=== PATIENT | female | born 1990 | race Caucasian/White ===

== ENCOUNTER 2019-05-23 07:11 | Inpatient (IN) | payer OTHER ==
[2019-05-23] MEDS ORDERED: Dexamethasone 4 MG/ML SDV ONE (07:16)
[2019-05-23] MEDS ORDERED: Neostigmine Methylsulfate 1 MG/ML 5 ML Syringe ONE (07:16)
[2019-05-23] MEDS ORDERED: Succinylcholine 200 MG/10 ML MDV ONE (07:16)
[2019-05-23] MEDS ORDERED: Rocuronium 50 MG/5 ML Vial ONE ×2 (07:16→11:09)
[2019-05-23] MEDS ORDERED: fentaNYL 250 MCG/5 ML SDV ONE ×3 (07:16→09:52)
[2019-05-23] MEDS ORDERED: Ondansetron 4 MG/2 ML SDV ONE (07:16)
[2019-05-23] MEDS ORDERED: Glycopyrrolate 0.2 MG/ML 5 ML MDV ONE (07:16)
[2019-05-23] MEDS ORDERED: Propofol 200 MG/20 ML SDV ONE (07:16)
[2019-05-23] MEDS ORDERED: Acetaminophen 500 MG Tab PO ONE (07:30)
[2019-05-23] MEDS ORDERED: Scopolamine 1.5 MG Transdermal Patch TOP SCH (07:30)
[2019-05-23] MEDS ORDERED: Gabapentin 300 MG Cap PO ONE (07:30)
[2019-05-23] MEDS ORDERED: Celecoxib 200 MG Cap PO ONE (07:30)
[2019-05-23] MEDS ORDERED: cefOXitin 2 GM in Sodium Chloride 0.9% 50 ML IV ONE (08:00)
[2019-05-23] MEDS ORDERED: Ketamine 500 MG/5 ML MDV IV SCH (08:30)
[2019-05-23] MEDS ORDERED: Magnesium Sulfate 3.8 GM in Sodium Chloride 0.9% 100 ML IV SCH (08:30)
[2019-05-23] MEDS ORDERED: Ketamine 50 MG in Sodium Chloride 0.9% 49.5 ML IV SCH (08:30)
[2019-05-23] MEDS ORDERED: Dextrose 5%-Lactated Ringers 1,000 ML IV SCH ×2 (09:06→16:00)
[2019-05-23 09:29] LABS: HEMOGLOBIN A1C 10.5 % (4.5-6.2)
[2019-05-23] MEDS: cefOXitin 2 GM Vial ONE ×2 (10:09→13:05)
[2019-05-23] MEDS ORDERED: Lactated Ringers 1,000 ML ONE ×2 (11:09→12:02)
[2019-05-23] MEDS ORDERED: Labetalol 20 MG/4 ML Syringe ONE (11:31)
[2019-05-23] MEDS ORDERED: hydrOXYzine HCL 100 MG/2 ML SDV IM PRN (15:55)
[2019-05-23] MEDS ORDERED: Calcium Gluconate 10% 1 GM/10 ML SDV IVPUSH PRN (15:55)
[2019-05-23] MEDS ORDERED: Ondansetron 4 MG/2 ML SDV IVPUSH PRN (15:55)
[2019-05-23] MEDS ORDERED: diphenhydrAMINE 50 MG/ML SDV IVPUSH PRN (15:55)
[2019-05-23] MEDS ORDERED: Cyclobenzaprine 10 MG Tab PO PRN (15:55)
[2019-05-23] MEDS ORDERED: Labetalol 20 MG/4 ML Syringe IVPUSH PRN (15:55)
[2019-05-23] MEDS ORDERED: HYDROmorphone 1 MG/ML Syringe IV PRN (15:55)
[2019-05-23] MEDS ORDERED: Metoclopramide 10 MG/2 ML SDV IVPUSH PRN (15:55)
[2019-05-23] MEDS ORDERED: Albuterol/Ipratropium 3.0-0.5 MG/3 ML Neb Soln INH PRN (15:55)
[2019-05-23] MEDS ORDERED: Acetaminophen 500 MG Tab PO PRN (15:55)
[2019-05-23] MEDS ORDERED: oxyCODONE 5 MG Tab PO PRN (15:55)
[2019-05-23] MEDS ORDERED: Pantoprazole 40 MG Vial IVPUSH SCH (16:00)
[2019-05-23] MEDS ORDERED: Lactated Ringers 1,000 ML IV SCH (16:00)
[2019-05-23] MEDS ORDERED: Glucagon,Human Recombinant 1 MG Vial IM PRN (16:06)
[2019-05-23] MEDS ORDERED: 50% Dextrose in Water 50 ML Syringe IVPUSH PRN (16:06)
[2019-05-23] MEDS: cefOXitin 2 GM in Sodium Chloride 0.9% 50 ML IV SCH ×2 (16:54→22:57)
[2019-05-23] MEDS: MVI, Adult with Vitamin K 10 ML, Thiamine 200 MG, Chromium/Copper/Mang/Selen/Zn 1 ML in... IV SCH ×4 (16:54)
[2019-05-23] MEDS: HYDROmorphone 0.5 MG/0.5 ML Syringe IVPUSH PRN ×2 (16:54→20:06)
[2019-05-23] MEDS: Insulin Lispro 100 Unit/ML 3 ML KwikPen SUBCUT PRN ×2 (16:55→22:59)
[2019-05-23] MEDS: Heparin Sodium 5,000 Units/ML Vial SUBCUT SCH (17:02)
[2019-05-23] MEDS: Acetaminophen 500 MG Tab PO SCH (17:59)
[2019-05-23] MEDS: Gabapentin 250 MG/5 ML Solution ML 470 ML Bottle PO SCH (20:06)
[2019-05-24] MEDS: Acetaminophen 500 MG Tab PO SCH ×4 (01:05→17:51)
[2019-05-24] MEDS ORDERED: Iopamidol 612 MG/ML 50 ML SDV PO STA (01:18)
[2019-05-24] MEDS: cefOXitin 2 GM in Sodium Chloride 0.9% 50 ML IV SCH ×3 (05:18→16:26)
[2019-05-24] MEDS: Heparin Sodium 5,000 Units/ML Vial SUBCUT SCH ×2 (05:21→16:34)
[2019-05-24] MEDS ORDERED: Ondansetron 4 MG Tab.DIS PO PRN (06:59)
[2019-05-24] MEDS ORDERED: Lactated Ringers 1,000 ML IV SCH (07:00)
[2019-05-24] MEDS ORDERED: hydrOXYzine HCl 25 MG Tab PO PRN (07:01)
--- NOTE | 2019-05-24 08:03 | PN ---
DATE OF SERVICE: 05/24/2019 SUBJECTIVE: Katrina is postoperative day #1. Her upper GI was normal. Pain has been controlled. Afebrile. Vital signs stable. Oral intake 360. Urine output via Moser catheter is 1930. MICHAEL drain put out 130 mL of a light pink drainage. She has been up, ambulating, using her incentive spirometer. Slept with her CPAP on this morning. REVIEW OF SYSTEMS: Remainder of review of systems negative for any pertinent positives and negatives. OBJECTIVE: GENERAL: Katrina Herman is a 28-year-old female, alert, orientated. VITAL SIGNS: TPR at 0700; 98.6, 96, 16. Blood pressure 137/73. HEENT: Negative. NECK: Supple. HEART: Regular rate and rhythm. LUNGS: Clear. ABDOMEN: Dressings dry and intact. Abdominal binder is on. MICHAEL drain is intact as above. EXTREMITIES: Without peripheral edema. Her blood sugars were 340, 344 and 312. Hemoglobin A1c was 10.5. ASSESSMENT: Laparoscopic duodenal switch, liver biopsy, repair of paraesophageal diaphragmatic hernia and excision of mediastinal lipoma for morbid obesity, hepatomegaly, diaphragmatic hernia, and mediastinal lipoma. Date of surgery 05/23/2019. Surgeon: Loki Ivan MD. PLAN: 1. Communication order written to have 3 med cups per hour, 1 every 20 minutes. 2. Dressing off, june shower. 3. Discontinue Moser catheter. 4. Step 2 gastric bypass diet with no cereal. 5. Hydroxyzine 25 mg p.o. q.4 hours p.r.n. pain. 6. Zofran ODT 4 mg sublingual p.r.n. every 4 hours. 7. Decrease lactated Ringer's IV solution to 100 mL per hour. 8. Discontinue D5 LR. 9. Discontinue IV Dilaudid 0.5 mg. 10.Discontinue Dilaudid 1 mg IV. 11.Discontinue repairer auto clocks and continuous pulse ox. 12.conservation educator/healthcare science specialist help in monitor patient's insulin pump. 13.Good pulmonary toilet. 14.We will evaluate p.r.n. or in a.m. Nikole Ha PA-C /[id number]
[2019-05-24] MEDS: Gabapentin 250 MG/5 ML Solution ML 470 ML Bottle PO SCH ×3 (08:16→21:46)
[2019-05-24] MEDS: Celecoxib 200 MG Cap PO SCH ×2 (08:16→21:46)
[2019-05-24] MEDS: Citalopram 20 MG Tab PO SCH (08:16)
--- NOTE | 2019-05-24 10:07 | CR ---
[facility] HISTORY: Postbariatric surgery FINDINGS: Patient swallowed water-soluble contrast. Upright views of the abdomen show no evidence of extravasation. There was normal flow into the Kim. Delayed images were obtained at 4.5 hours showing a persistent collection of contrast near the gastric remanent. There is no evidence of distal obstruction IMPRESSION: Status post bariatric surgery No extravasation or obstruction seen. The persistent collection of barium in the epigastric region may be within the portion of the gastric remanent. It does not appear to be within the excluded portion. Clinical correlation necessary. Short-term follow-up is a consideration
[2019-05-24] MEDS: Insulin Lispro 100 Unit/ML 3 ML KwikPen SUBCUT PRN ×3 (11:36→21:59)
[2019-05-24] MEDS: SCOPOLAMINE PATCH CHECK TOP SCH (11:48)
[2019-05-24] MEDS ORDERED: Insulin Glargine,Human Rec. Analog 100 Units/ML 3 ML Pen SUBCUT ONE (12:30)
[2019-05-24] MEDS ORDERED: 50% Dextrose in Water 50 ML Syringe IVPUSH PRN (12:33)
[2019-05-24] MEDS ORDERED: Glucagon,Human Recombinant 1 MG Vial IM PRN (12:33)
[2019-05-24] MEDS ORDERED: Glucose Gel 15 GM in 37.5 GM Tube PO PRN (12:33)
[2019-05-24] MEDS: MVI, Adult with Vitamin K 10 ML, Thiamine 200 MG, Chromium/Copper/Mang/Selen/Zn 1 ML in... IV SCH ×4 (16:25)
[2019-05-24] MEDS: Pantoprazole 40 MG Delayed-Release Granules 1 Packet PO SCH (16:38)
[2019-05-24] MEDS: Acetaminophen Soln 650 MG/20.3 ML UD Cup PO SCH (21:47)
[2019-05-24] MEDS ORDERED: Acetaminophen 500 MG Tab PO SCH (22:00)
[2019-05-25] MEDS: Heparin Sodium 5,000 Units/ML Vial SUBCUT SCH ×2 (03:35→17:14)
[2019-05-25] MEDS: Acetaminophen Soln 650 MG/20.3 ML UD Cup PO SCH ×3 (06:48→21:29)
--- NOTE | 2019-05-25 08:47 | PN ---
DATE OF SERVICE: 05/25/2019 SUBJECTIVE: Katrina received 25 units of Lantus yesterday 1 time. Blood sugars were treated with sliding scale and were 274 and at 1745, 250. This morning, it was 261. Pain has been controlled. Up, ambulating. Oral intake 1435. Urine output 1200. MICHAEL drain put out 95 mL of a light pink drainage. REVIEW OF SYSTEMS: Remainder of review of systems negative for any pertinent positives and negatives. OBJECTIVE: GENERAL: Katrina Herman is a pleasant 28-year-old female. VITAL SIGNS: TPR at 07:36, 97.7; 96; 16; blood pressure 127/74. HEENT: Negative. NECK: Supple. HEART: Regular rate and rhythm. LUNGS: Clear. ABDOMEN: Dressings dry and intact. MICHAEL drain intact. Incisions look good. EXTREMITIES: Without peripheral edema. ASSESSMENT: Laparoscopic duodenal switch, liver biopsy, repair of paraesophageal diaphragmatic hernia and excision of mediastinal lipoma for morbid obesity, hepatomegaly, diaphragmatic hernia, mediastinal lipoma. Date of surgery: 05/23/2019. Surgeon: Lkoi Ivan MD. PLAN: 1. Milk of mag 30 mL 1 time, followed by;. 2. Dulcolax 20 mg p.o., give 1 hour after milk of mag. 3. Discontinue MICHAEL drain. 4. Lantus 15 units b.i.d. 5. Alogliptin 25 mg once daily. 6. Januvia 100 mg daily. 7. Communication order written to see if it is covered by her insurance. 8. Good pulmonary toilet. 9. We will evaluate p.r.n. or in a.m. 10.Plan discharge in a.m. Nikole Ha PA-C /[id number]
[2019-05-25] MEDS ORDERED: Cyanocobalamin (Vitamin B12) 1,000 MCG/ML SDV IM ONE (09:00)
[2019-05-25] MEDS ORDERED: Magnesium Hydroxide 400 MG/5 ML Susp 30 ML Cup PO ONE (09:00)
[2019-05-25] MEDS ORDERED: Insulin Glargine,Human Rec. Analog 100 Units/ML 3 ML Pen SUBCUT SCH (09:00)
[2019-05-25] MEDS: Citalopram 20 MG Tab PO SCH (09:03)
[2019-05-25] MEDS: Celecoxib 200 MG Cap PO SCH ×2 (09:03→21:26)
[2019-05-25] MEDS: SCOPOLAMINE PATCH CHECK TOP SCH (09:04)
[2019-05-25] MEDS: Insulin Lispro 100 Unit/ML 3 ML KwikPen SUBCUT SCH ×4 (09:11→21:25)
[2019-05-25] MEDS: Gabapentin 250 MG/5 ML Solution ML 470 ML Bottle PO SCH ×3 (09:24→21:28)
[2019-05-25] MEDS ORDERED: Bisacodyl 5 MG Tab PO ONE (10:00)
--- NOTE | 2019-05-25 13:24 | OR ---
DATE OF PROCEDURE: 05/23/2019 SURGEON: Loki Ivan MD PREOPERATIVE DIAGNOSIS: Morbid obesity. POSTOPERATIVE DIAGNOSES: 1. Morbid obesity. 2. Marked hepatomegaly. 3. Paraesophageal diaphragmatic hernia. 4. Mediastinal lipoma. OPERATIVE PROCEDURES: 1. Laparoscopic duodenal switch (46878). 2. Espinoza-Cut needle liver biopsy (76311). 3. Repair of paraesophageal diaphragmatic hernia (32629). 4. Excision of mediastinal lipoma (34847). ANESTHESIA: General. PRODUCT STRATEGY DIRECTOR: Nikole Ha PA-C. INDICATIONS FOR PROCEDURE: This is a 28-year-old with longstanding morbid obesity and increasingly significant comorbidities. Her diabetes has become quite poorly controlled and she is already getting some neuropathies in her feet and such. Given this, after preop evaluation and discussion, she wished to proceed with a duodenal switch, which would be the most effective antidiabetic procedure available. Potential risks of the procedure including bleeding, infection, leaks from the anastomoses or staple lines, as well as possibility of cardiopulmonary, septic, or hemorrhagic complications leading to were all discussed, and the patient wishes to proceed. DETAILS OF PROCEDURE: The patient was taken to the operating room, placed in a supine position. After general endotracheal anesthesia was induced, she was converted to a lithotomy position and a Moser catheter was inserted and the abdomen prepped and draped. A 20-cm inferior and 5 cm left of the xiphoid process, a transverse incision was made and the peritoneal cavity entered under direct vision with an Optiview trocar, inflated to 15 mmHg pressure with CO2. Laparoscope was then reinserted. No underlying trocar insertion site injuries were seen. Following this, bilateral transversus abdominis plane blocks were then placed and 6 additional trocars placed across the upper and mid abdomen. Initial exploration showed the patient to have marked hepatomegaly with liver being quite fatty infiltrated. Espinoza-Cut needle biopsy was obtained from left lobe of the liver. Minimal bleeding from the biopsy site was controlled with electrocautery. Upon elevation of the liver, the patient was noted to have a fairly large paraesophageal diaphragmatic hernia with prolapse of some of the gastric fundus and perigastric fat in a plane anterior to the course of the esophagus. This was reduced and the peritoneum overlying incised and reflected downward. During the course of the dissection, a mediastinal lipoma was encountered, and this was excised to facilitate a more adequate crural repair and anterior crural repair was then accomplished with 0 Ethibond sutures, reinforced with PTFE pledgets. At this point, the omentum was taken down from the greater curvature of the stomach beginning in the mid-greater curvature and then going proximally up through the short gastric vessels including highest and posterior short gastric vessels. Omentum dissection then continued distally across the pylorus roughly 4 cm into the duodenum. The patient had a previous cholecystectomy, but there was some omental scarring of the gallbladder bed, but the proximal duodenum was quite free of any adhesions and the common bile duct in fact was easily visualized. At this point, the duodenum was divided 4 cm distal to the pylorus with a PETER purple load, and some of the lesser omental tissue along the distal most aspect of the proximal end of the divided duodenum was divided with Harmonic Scalpel, which allowed the end of the proximal duodenum to drop down quite a bit to facilitate so as to allow less tension at the subsequent duodenal ileostomy. At this point, beginning 5 cm proximal to the pylorus, the staple lines for the sleeve gastrectomy phase began with 2 black loads, and following this, then the 40-Polish chest tube was placed orally per Anesthesia across the esophagus and then positioned across the lesser curvature of the stomach. The remainder of the sleeve gastrectomy was then accomplished with combination of reinforced black and purple loads along the edge of the 40- Polish chest tube. At that point, the chest tube was removed and then the staple lines appeared to be satisfactory. The ileocecal valve was then identified and the small bowel then traced back up 300 cm proximal to that point. This came up to the divided end of the duodenum reasonably well, although the mesentery was quite thickened and fat laden. Given this, we decided to proceed with a duodenal ileostomy but forego the second small bowel anastomosis to avoid potential problems related to the very thick mesentery and potential to disrupt the duodenal ileostomy. Initial stay suturing between the divided duodenum and the antimesenteric border of the small bowel at a 300-cm brian were then placed. Then, duodenum and the small bowel were then opened with electrocautery followed by Harmonic scalpel. A 2-layer anastomosis using 3-0 Vicryl stitch was then accomplished including the posterior seromuscular sutures first and then beginning the full-thickness sutures posteriorly and inferiorly around both superior and inferior aspects and then anteriorly across the area of the anastomosis. Once these were completed, then the posterior layer of sutures were then continued around the superior and inferior aspects and the seromuscular layer then completed as well. The duodenal ileostomy was then reinforced with some fibrin sealant. The proximal portion of the small bowel just proximal to the duodenal ileostomy was tacked up to the lower aspect of the antrum with some additional 3-0 Vicryl stitches to facilitate a more distal flow of the contents of the duodenal ileostomy. The balloon catheter was then placed per Anesthesia into the sleeve gastrectomy and inflated. A leak test was accomplished with injection of air while the area of the staple line and duodenal ileostomy was submerged with antibiotic-containing saline solution. No leaks were seen and there was good air flow through the duodenal ileostomy confirming its patency. Some additional fibrin sealant was then placed along the sleeve gastrectomy staple line focusing on the area of the gastroesophageal junction. That area also had some omentum tacked up against it as well with some 3-0 Vicryl stitch. No further problems were noted at this point. A single Konstantin-Reyes drain was then placed, taken out through the left lateral trocar site. After the gastric specimen was delivered and the trocars were then sequentially removed and the peritoneal cavity deflated, incisions were closed with some 4-0 Vicryl skin stitch and then drain fixed with 4-0 Vicryl stitch as well. The patient was taken to the recovery room in satisfactory condition. Physician faculty research assistant, Nikole Ha, played an essential role in assisting in this case, helping to position the patient, retract structures as needed, as well as suturing and cutting sutures when indicated. Her presence improved patient's safety and decreased operative time. Loki Ivan MD /[id number]
[2019-05-25] MEDS: Pantoprazole 40 MG Delayed-Release Granules 1 Packet PO SCH (17:13)
[2019-05-25] MEDS: Insulin Glargine,Human Rec. Analog 100 Units/ML 3 ML Pen SUBCUT SCH (21:28)
[2019-05-26] MEDS: Acetaminophen Soln 650 MG/20.3 ML UD Cup PO SCH (05:00)
[2019-05-26] MEDS: Heparin Sodium 5,000 Units/ML Vial SUBCUT SCH (05:00)
[2019-05-26] MEDS: Citalopram 20 MG Tab PO SCH (08:19)
[2019-05-26] MEDS: Celecoxib 200 MG Cap PO SCH (08:19)
[2019-05-26] MEDS: Insulin Lispro 100 Unit/ML 3 ML KwikPen SUBCUT SCH (08:21)
[2019-05-26] MEDS: Gabapentin 250 MG/5 ML Solution ML 470 ML Bottle PO SCH (08:24)
[2019-05-26] MEDS: Insulin Glargine,Human Rec. Analog 100 Units/ML 3 ML Pen SUBCUT SCH (08:28)
--- NOTE | 2019-05-26 10:03 | DISCH ---
ADMISSION DIAGNOSES: 1. Morbid obesity, BMI 49.3. 2. Diabetes type 2, uncontrolled, use of insulin pump. 3. Major depressive disorder. 4. Polycystic ovary syndrome. 5. Mild sleep apnea. 6. Chronic diarrhea. 7. Anxiety. 8. Fatty liver disease. 9. Somatoform disorder. 10.Personality disorder. 11.Neuropathic pain. DISCHARGE DIAGNOSES: 1. Laparoscopic duodenal switch. 2. Espinoza-Cut needle liver biopsy. 3. Repair of paraesophageal diaphragmatic hernia. 4. Excision of mediastinal lipoma. POSTOPERATIVE DIAGNOSES: 1. Morbid obesity. 2. Marked hepatomegaly. 3. Paraesophageal diaphragmatic hernia. 4. Mediastinal lipoma. DATE OF SURGERY: 05/23/2019. SURGEON: Loki Ivan MD. HISTORY: Katrina Herman is a 28-year-old female with longstanding history of morbid obesity and increasing comorbidities. Her diabetes has become quite poorly controlled and she is already getting some neuropathies in her lower extremities. After preoperative evaluation and discussion of possible risks and possible complications, she wished to proceed with surgical procedure. HOSPITAL COURSE: Katrina had her surgery on 05/23/2019. She had no operative complications. On postoperative day #1, her blood sugars were controlled with a sliding scale. Her upper GI was normal. Vital signs were stable. She was given Lantus 25 units once daily. On 05/25/2019, blood sugars were 274, 250, and 261. She was started on Alogliptin 25 mg once daily and given Lantus 15 units in the morning and 20 units at bedtime. On 05/26/2019, blood sugars were 261, 196, and 187. Katrina received a B12 1000 mcg IM injection. Her activity was good. Oral intake adequate. Vital signs stable and she received dietary instruction. On postoperative day #3, she was able to be discharged to home with no complications. PHYSICAL EXAMINATION: GENERAL: Katrina is a pleasant 28-year-old female, alert, orientated. Height is 5 feet 4 inches, weight is 287 pounds, BMI 49.3. TPR at 0713; 97.3, 83, 16. Blood pressure 126/69. HEENT: Negative. NECK: Supple. HEART: Regular rate and rhythm. LUNGS: Clear. ABDOMEN: Incisions look good. Sutures intact. Abdominal binder is on. EXTREMITIES: Without peripheral edema. DISPOSITION: Discharged to home. CONDITION: Stable and improving. FOLLOWUP APPOINTMENT: Nikole Ha PA-C, on Thursday06/03/2019 at 9 a.m. DISCHARGE MEDICATIONS: New prescriptions: 1. Alogliptin 25 mg oral daily, #30, 11 refills. 2. Celebrex 200 mg oral b.i.d., #28. 3. Lantus 20 units subcu twice daily, 3 pens were given. She is to resume her home medication of: 1. Amitriptyline 50 mg at bedtime. 2. 40 mg oral daily. 3. Neurontin 100 mg oral twice daily. 4. Zofran 4 mg oral every 8 hours. She is to stop taking all vitamins and supplements until 1st postop appointment. DIET: Step 2 gastric bypass diet with no cereal for 1 month until 06/23/2019. ACTIVITY AFTER DISCHARGE: No lifting over 10 pounds for 2 weeks. Other activity: Walk at least 6 times daily inside your home. Driving: Do not drive for 1 week. Shower/bathing: May shower. DISCHARGE INSTRUCTIONS: Notify provider if any fever, increased pain, nausea, or vomiting. Keep site clean and dry. Wear abdominal binder for 2 weeks and then as tolerated. SPECIAL INSTRUCTIONS: 1. Use incentive spirometer 10 times every hour while awake. 2. Check blood sugars 4 times a day and record results. 3. Call clinic on Thursday with results of blood sugar readings, call [phone].
== END 2019-05-26 10:21 | disposition home or self-care (01) | DRG 621 ==
LOC: JP.SDSSCHI 07:11 → JP.SDS 07:11 → EDSTATUS 10:15 → JP.MS 15:00
PROVIDERS: ADMIT Surgery; ATTEND Surgery
PROC: 0D194ZB Bypass Duodenum to Ileum, Percutaneous Endoscopic Approach (ICD-10-PCS; principal; 2019-05-23)
PROC: 0FB24ZX Excision of Left Lobe Liver, Percutaneous Endoscopic Approach, Diagnostic (ICD-10-PCS; 2019-05-23)
PROC: 0BQT4ZZ Repair Diaphragm, Percutaneous Endoscopic Approach (ICD-10-PCS; 2019-05-23)
PROC: 0JB63ZZ Excision of Chest Subcutaneous Tissue and Fascia, Percutaneous Approach (ICD-10-PCS; 2019-05-23)
DX: E66.01 Morbid (severe) obesity due to excess calories (principal); Z68.42 Body mass index [BMI] 45.0-49.9, adult; Z96.41 Presence of insulin pump (external) (internal); F32.9 Major depressive disorder, single episode, unspecified; E28.2 Polycystic ovarian syndrome; K52.9 Noninfective gastroenteritis and colitis, unspecified; F41.9 Anxiety disorder, unspecified; K76.0 Fatty (change of) liver, not elsewhere classified; F45.9 Somatoform disorder, unspecified; F60.9 Personality disorder, unspecified; R16.0 Hepatomegaly, not elsewhere classified; K44.9 Diaphragmatic hernia without obstruction or gangrene; D17.4 Benign lipomatous neoplasm of intrathoracic organs; G47.33 Obstructive sleep apnea (adult) (pediatric); E11.42 Type 2 diabetes mellitus with diabetic polyneuropathy; K21.9 Gastro-esophageal reflux disease without esophagitis; Z90.49 Acquired absence of other specified parts of digestive tract; Z79.899 Other long term (current) drug therapy; Z79.84 Long term (current) use of oral hypoglycemic drugs; Z88.2 Allergy status to sulfonamides; Z88.8 Allergy status to other drugs, medicaments and biological substances
CPT/HCPCS: 36415; 74240; 74240-26; 80053; 81025; 82962; 83036; 83735; 84100; 85025; 85027; 86850; 86900; 86901; 88304; 88307; 88313; 94762; A9270-GY; C9113; J0171; J0330; J0694; J1100; J1170; J1644; J1815; J1815-GY; J2405; J2704; J2710; J2795; J3010; J3411; J3420; J3475; J3490; J7050; J7120; J7121; Q9967

== ENCOUNTER 2021-01-24 05:25 | Day surgery (SDC) | payer OTHER ==
[2021-01-24] MEDS ORDERED: Acetaminophen 500 MG Tab PO ONE (06:00)
[2021-01-24] MEDS ORDERED: Dextrose 5%-Lactated Ringers 1,000 ML IV SCH (06:00)
[2021-01-24] MEDS ORDERED: Celecoxib 200 MG Cap PO ONE (06:00)
[2021-01-24 06:35] LABS: CORONAVIRUS COVID-19 NAA NEGATIVE (NEGATIVE)
[2021-01-24] MEDS ORDERED: Bupivacaine 0.5%/EPINEPHrine 1:200,000 50 ML MDV ONE (06:36)
[2021-01-24] MEDS ORDERED: Meropenem 500 MG SDV ONE (06:36)
[2021-01-24] MEDS ORDERED: fentaNYL 250 MCG/5 ML SDV ONE (07:06)
[2021-01-24] MEDS ORDERED: Rocuronium 50 MG/5 ML Vial ONE (07:07)
[2021-01-24] MEDS ORDERED: Glycopyrrolate 0.2 MG/ML 5 ML MDV ONE (07:07)
[2021-01-24] MEDS ORDERED: Propofol 200 MG/20 ML SDV ONE (07:07)
[2021-01-24] MEDS ORDERED: Ondansetron 4 MG/2 ML SDV ONE (07:07)
[2021-01-24] MEDS ORDERED: Succinylcholine 200 MG/10 ML MDV ONE (07:07)
[2021-01-24] MEDS ORDERED: Neostigmine Methylsulfate 1 MG/ML 5 ML Syringe ONE (07:07)
[2021-01-24] MEDS ORDERED: Dexamethasone 4 MG/ML SDV ONE (07:07)
[2021-01-24] MEDS ORDERED: Ketamine 16 MG in Sodium Chloride 0.9% 19.84 ML IV SCH (07:15)
[2021-01-24] MEDS ORDERED: cefOXitin 2 GM in Sodium Chloride 0.9% 50 ML IV ONE (07:15)
[2021-01-24] MEDS ORDERED: Ketamine 500 MG/5 ML MDV IV SCH (07:15)
[2021-01-24] MEDS ORDERED: Ketorolac 30 MG/ML SDV ONE (07:55)
[2021-01-24] MEDS ORDERED: Lidocaine 1% 50 ML MDV ONE (08:01)
[2021-01-24] MEDS ORDERED: Lactated Ringers 1,000 ML ONE (08:21)
[2021-01-24] MEDS ORDERED: Sugammadex Sodium 200 MG/2 ML VIAL ONE (08:27)
[2021-01-24] MEDS ORDERED: Acetaminophen/HYDROcodone 325-5 MG Tab PO ONE (10:15)
--- NOTE | 2021-02-03 12:47 | OR ---
DATE OF PROCEDURE: 01/24/2021 SURGEON: Loki Ivan MD PREOPERATIVE DIAGNOSIS: Persistent right lower quadrant pain. POSTOPERATIVE DIAGNOSIS: Persistent right lower quadrant pain associated with: 1. Pelvic endometriosis. 2. Grossly normal appendix. 3. Small right ovarian cyst. PROCEDURE PERFORMED: Diagnostic laparoscopy with: 1. Ablation of pelvic endometriosis (56046). 2. Appendectomy (30253). 3. Right ovarian cystectomy (86805). ANESTHESIA: General. RESTAURANT CREW PERSON: Nikole Ha PA-C INDICATIONS FOR PROCEDURE: This is 30-year-old with some persistent tenderness in the right lower quadrant. She remains clinically very tender in a fairly focal area and the area just to the right of suprapubic region. No hernias evident at this point and workup radiologically otherwise has been unremarkable. Plan is to proceed with a diagnostic laparoscopy with procedures as indicated as well we will do an appendectomy, so that chronic appendicitis which otherwise might be necessary would be avoided as well as having continuing issues and problems with right lower quadrant discomfort. Otherwise, the procedure as indicated will be undertaken. The patient at this point wishes to continue with childbearing and we will avoid as much as possible a procedure that might impair her fertility in terms of tubes and ovaries. Potential risks including bleeding, infection, and injury to the underlying viscera, leaks from GI tract closures such as with appendectomy stump as well as persistent or recurrent problems with pain over time were reviewed and the patient wishes to proceed. DETAILS OF PROCEDURE: The patient was taken to the operating room, placed in a supine position. After general endotracheal anesthesia was induced, a Moser catheter was inserted and the abdomen was prepped and draped. Three fingerbreadths superior and to the left of the umbilicus, a transverse incision was made. The peritoneal cavity entered under direct vision with an Optiview trocar, inflated to 15 mmHg pressure with CO2. Laparoscope was reinserted, no underlying trocar insertion site injuries were seen. Following this, a 12 mm trocar was placed in the right upper quadrant as well as left lower quadrant and the lower abdomen examined. The patient immediately was noted to have an area of pelvic endometriosis and this was most intense in the area directly underneath the preoperatively marked location in the area just to the right of suprapubic area. There was also some endometriosis posteriorly in the posterior cul-de-sac as well as the scattered areas of the left pelvic wall. One of the more prominent areas was then removed by means of biopsy forceps, some blood emerged as the biopsy forceps were placed tissue was removed but the bloodiness of that area and then the overall appearance was very consistent with an endometriosis. The patient also had some slightly blood pelvic fluid present. At this point, the areas of endometriosis were ablated. We did obtain full evacuation of the areas of endometriosis, so that this could be brought back to the patient's grocery store courtesy clerk. At this point then the appendix appeared to have some fibrous obliteration grossly on its distal aspect, but otherwise was unremarkable. The mesentery of the appendix was then divided with Harmonic scalpel up to the point where the junction of the appendix and the cecum were noted and this area was then divided with PETER lees load. The patient had a very small ovarian cyst in the right ovary which was excised with a PETER stapler as well. This did not result in any significant reduction of ovarian tissue otherwise the tubes and ovaries on both sides appeared to be normal. At this point, no further problems were noted. Bilateral transversus abdominis plane blocks were then placed at this point and the trocars were removed. The peritoneal cavity was deflated. The fascia at the 12 mm trocar site was closed with 0 Vicryl stitch and the skin was closed with 4-0 Vicryl skin stitch. Dressing was applied. After this, the incisions were anesthetized with 0.25% Marcaine. The patient was taken to the recovery room in satisfactory condition. Physician product development assistant, Nikole Ha played an essential role in assisting in this case, helping to position the patient, retract structures as needed as well as suturing and cutting sutures when indicated. Her presence improved patient safety and decreased the operative time. Loki Ivan MD /[id number]
== END 2021-01-24 11:40 | disposition home or self-care (01) ==
LOC: JP.SDS 05:25
PROVIDERS: ATTEND Surgery
DX: D27.0 Benign neoplasm of right ovary (principal); N80.3 Endometriosis of pelvic peritoneum; N83.201 Unspecified ovarian cyst, right side; K21.9 Gastro-esophageal reflux disease without esophagitis; I10 Essential (primary) hypertension; G62.9 Polyneuropathy, unspecified; K91.2 Postsurgical malabsorption, not elsewhere classified; E11.65 Type 2 diabetes mellitus with hyperglycemia; E55.9 Vitamin D deficiency, unspecified; E50.9 Vitamin A deficiency, unspecified; E61.2 Magnesium deficiency; E53.8 Deficiency of other specified B group vitamins; G47.33 Obstructive sleep apnea (adult) (pediatric); E66.01 Morbid (severe) obesity due to excess calories; Z88.2 Allergy status to sulfonamides; Z79.899 Other long term (current) drug therapy; Z98.84 Bariatric surgery status; Z98.890 Other specified postprocedural states; Z88.8 Allergy status to other drugs, medicaments and biological substances; Z01.812 Encounter for preprocedural laboratory examination; Z20.822 Contact with and (suspected) exposure to COVID-19
CPT/HCPCS: 0241U; 36415; 44970; 58661; 58662; 80053; 82728; 82947; 83735; 84100; 84703; 85025; 88304; 88305; A9270; J0171; J0330; J0694; J1100; J1885; J2001; J2405; J2704; J2710; J2795; J3010; J3490; J7120; J7121; J2185